=== PATIENT | male | born 1985 | race Caucasian/White ===

== ENCOUNTER → 2018-05-29 | Outpatient (CLI) | payer OTHER ==
[~2018-05-29] MED LIST: GADOBUTROL 10 ML VIAL IVP ONE
== END ==
LOC: FIMAGING 09:16
PROVIDERS: ATTEND Internal Medicine
DX: H53.9 Unspecified visual disturbance (principal); R20.0 Anesthesia of skin; R79.89 Other specified abnormal findings of blood chemistry
CPT/HCPCS: A9585